=== PATIENT | male | born 1995 ===

== ENCOUNTER 2017-08-14 17:15 | Emergency (ER) | payer OTHER ==
[2017-08-14 17:43] VITALS: BP 114/59
--- NOTE | 2017-08-14 18:02 | UC ---
Skin Complaint HPI - HPI Summary HPI Summary: Started getting itchy spots about a month ago while studying for finals at [employer]. First noticed large red itchy spots that were like chigger bites, in separate places. Those faded once he went home for break, then he noticed small itchy patches with faint, tiny confluent bumps in many areas on body. Had some on L hand between fingers, on ankles, on backs of upper arms, abdomen, and hip. Has noticed some linear arias in the itchy patches. Itching is particularly bad at night. Did get ill about 2 weeks ago with fever and ST, sx resolved after a few days. Also recently received yellow fever vaccine and typhoid oral vaccine, but these were both after rash started. - History of Current Complaint Chief Complaint: [facility] Time Seen by Provider: 08/14/17 17:32 Stated Complaint: RASH Hx Obtained From: Patient Onset/Duration: Gradual Onset, Lasting Weeks Timing: Constant Onset Severity: Mild Current Severity: Moderate Location: Diffuse Character: Pruritus, Redness, Raised Aggravating Factor(s): Nothing Alleviating Factor(s): Nothing Associated Signs & Symptoms: Positive: Rash - Allergy/Home Medications Allergies/Adverse Reactions: Allergies Allergy/AdvReac Type Severity Reaction Status Date / Time No Known Allergies Allergy Verified 08/14/17 17:43 Review of Systems Constitutional: Negative Skin: Rash Eyes: Negative ENT: Negative Respiratory: Negative Cardiovascular: Negative Gastrointestinal: Negative Genitourinary: Negative Motor: Negative Neurovascular: Negative Musculoskeletal: Negative Neurological: Negative Psychological: Negative Is Patient Immunocompromised?: No All Other Systems Reviewed And Are Negative: Yes PMH/Surg Hx/FS Hx/Imm Hx Previously Healthy: Yes - Surgical History Surgical History: None - Family History Known Family History: Negative: Blood Disorder - Social History Occupation: Student Lives: Alone Alcohol Use: None Substance Use Type: None Smoking Status (MU): Never Smoked Tobacco Physical Exam Triage Information Reviewed: Yes Appearance: Well-Appearing, No Pain Distress, Well-Nourished Vital Signs: Initial Vital Signs Temp 98.1 F 08/14/17 17:37 Pulse 64 08/14/17 17:37 Resp 16 08/14/17 17:37 BP 114/59 08/14/17 17:37 Pulse Ox 100 08/14/17 17:37 Vital Signs Reviewed: Yes Eye Exam: Normal Eyes: Positive: Conjunctiva Clear ENT Exam: Normal ENT: Positive: Normal ENT inspection, Hearing grossly normal, Pharynx normal, TMs normal Dental Exam: Normal Neck exam: Normal Neck: Positive: Supple, Nontender, No Lymphadenopathy Respiratory Exam: Normal Respiratory: Positive: Chest non-tender, Lungs clear, Normal breath sounds, No respiratory distress, No accessory muscle use Cardiovascular Exam: Normal Cardiovascular: Positive: RRR, No Murmur Musculoskeletal Exam: Normal Musculoskeletal: Positive: Strength Intact Neurological Exam: Normal Neurological: Positive: Alert Psychological Exam: Normal Skin Exam: Other - Multiple areas of raised confluent fine slightly red rash on posterior shoulders, abdomen, lower legs, L hip. [place]ys tracts on lower abd and L hip. Course/Dx - Diagnoses Provider Diagnoses: scabies Discharge - Discharge Plan Condition: Stable Disposition: HOME Prescriptions: Permethrin [Elimite] 5 % TOPICAL ONCE #60 cre Patient Education Materials: Scabies (ED) Referrals: No Primary Care Phys,NOPCP [Primary Care Provider] - Additional Instructions: Make sure you wash all clothing and bedding and put through a hot dryer cycle to prevent reinfestation.
== END 2017-08-14 18:05 | disposition home or self-care (01) ==
LOC: UCEAST 17:15
DX: B86 Scabies (principal)
CPT/HCPCS: 99202; G0463